=== PATIENT | male | born 1955 | race Caucasian/White ===

== ENCOUNTER → 2016-10-04 | Outpatient (CLI) | payer MEDICARE ==
[~2016-10-04] MED LIST: AMMONIUM LACTA140 GM TP; ASPIR 8181 MG PO; GLUCOPHAGE1000 MG PO; HYDROCHLOROTHIA25 MG PO; LORTAB 7.5-3251 EACH PO; NEURONTIN 300300 MG PO; OMEPRAZOLE20 MG PO; ORALONE5 GM TOP; OTEZLA30 MG PO; PAXIL 20 MG TAB20 MG GT; SOTALOL160 MG PO; XARELTO20 MG PO; ZYLOPRIM 100 M100 MG PO
[2016-10-04 11:28] LABS: BUN/CREATININE RATIO 18 (0-10)
== END ==
LOC: LAB 10:37
PROVIDERS: Family Medicine
DX: E11.9 Type 2 diabetes mellitus without complications (principal); M10.9 Gout, unspecified; E78.2 Mixed hyperlipidemia
CPT/HCPCS: 36415; 80053; 80061; 82043; 82570; 83036; 84550

== ENCOUNTER → 2020-08-09 | Outpatient (CLI) | payer MEDICARE ==
[~2020-08-09] MED LIST changes: +ALBUTEROL2.5 MG/3 M INH; +ALLOPURINOL300 MG PO; +AMIODARONE HCL200 MG PO; +AMIODARONE HCL400 MG PO; +ASPIRIN EC81 MG PO; +CARDIZEM CD180 MG PO; +DIGOX125 MCG PO; +FUROSEMIDE20 MG PO; +GABAPENTIN600 MG PO; +HYDROCODON-ACE1 EAC6 PO; +IMDUR ER TAB 3030 MG PO; +LASIX20 MG PO; +LEVAQUIN PO; +METFORMIN HCL1000 MG PO; +METOPROLOL TART25 MG PO; +NITROGLYCERIN0.4 MG SL; +NORVASC10 MG PO; +PROAIR DIGIHAL90 MCG INH; +TESSALON PERLE100 MG PO; +VENTOLIN HFA 66.7 GM INH; +XARELTO15 MG PO
[2020-08-09 13:29] LABS: HEMOGLOBIN 15.2 gm/dl (14.0-17.5); RED BLOOD COUNT 5.47 M/UL (4.20-5.50); WHITE BLOOD COUNT 9.6 K/UL (4.5-11.0)
[2020-08-09 13:50] LABS: BUN/CREATININE RATIO 10 (0-10)
[2020-08-10 10:12] LABS: CREATININE, URINE 25.1 mg/dL (Not Estab.)
== END ==
LOC: LAB 12:34
PROVIDERS: Family Medicine
DX: Z12.5 Encounter for screening for malignant neoplasm of prostate (principal); M10.9 Gout, unspecified; E11.9 Type 2 diabetes mellitus without complications; E78.2 Mixed hyperlipidemia
CPT/HCPCS: 36415; 80053; 80061; 82043; 82570; 84550; 85027; G0103

== ENCOUNTER → 2020-08-19 | Outpatient (CLI) | payer MEDICARE | LOC: KOH-I 15:33 | DX: M79.604 Pain in right leg (principal); M79.605 Pain in left leg; I73.9 Peripheral vascular disease, unspecified | CPT/HCPCS: 93922; 93925 ==

== ENCOUNTER → 2020-09-20 | Outpatient (CLI) | payer MEDICARE ==
[2020-09-20 11:11] LABS: BUN/CREATININE RATIO 18 (0-10)
== END ==
LOC: LAB 10:11
PROVIDERS: Family Medicine
DX: I10 Essential (primary) hypertension (principal)
CPT/HCPCS: 36415; 80048

== ENCOUNTER → 2020-10-15 | Outpatient (CLI) | payer MEDICARE | LOC: CT 09:26 | DX: I70.213 Atherosclerosis of native arteries of extremities with intermittent claudication, bilateral legs (principal); I70.91 Generalized atherosclerosis; I10 Essential (primary) hypertension; Z91.040 Latex allergy status | CPT/HCPCS: 75635; Q9967 ==

== ENCOUNTER → 2020-11-16 | Outpatient (CLI) | payer MEDICARE | LOC: RAD 13:12 | DX: L03.115 Cellulitis of right lower limb (principal) | CPT/HCPCS: 73610; 73630 ==

== ENCOUNTER 2020-11-22 10:28 | Emergency (ER) | payer MEDICARE ==
[~2020-11-22 10:28] MED LIST changes: -PROAIR DIGIHAL90 MCG INH; -TESSALON PERLE100 MG PO
[2020-11-22 11:57] LABS: HEMOGLOBIN 14.7 gm/dl (14.0-17.5); RED BLOOD COUNT 5.2 M/UL (4.20-5.50)
[2020-11-22 12:22] LABS: BUN/CREATININE RATIO 12 (0-10)
== END 2020-11-22 13:00 | disposition home or self-care (01) ==
LOC: ER1 10:28
PROVIDERS: Family Medicine
DX: E11.65 Type 2 diabetes mellitus with hyperglycemia (principal); F41.9 Anxiety disorder, unspecified; H53.9 Unspecified visual disturbance; E11.40 Type 2 diabetes mellitus with diabetic neuropathy, unspecified; F17.200 Nicotine dependence, unspecified, uncomplicated; Z91.040 Latex allergy status; Z88.8 Allergy status to other drugs, medicaments and biological substances; Z79.82 Long term (current) use of aspirin
CPT/HCPCS: 70450; 80053; 82550; 82553; 83874; 84484; 85025; 93005; 99284

== ENCOUNTER 2020-12-17 13:01 | Emergency (ER) | payer MEDICARE ==
[2020-12-17 14:17] LABS: HEMOGLOBIN 11.1 gm/dl (14.0-17.5); RED BLOOD COUNT 3.98 M/UL (4.20-5.50); WHITE BLOOD COUNT 13.4 K/UL (4.5-11.0)
[2020-12-17 14:54] LABS: BUN/CREATININE RATIO 28 (0-10)
[2020-12-17] MEDS ORDERED: TESSALON PERLE100 MG PO (17:24)
[2020-12-17] MEDS ORDERED: PROAIR DIGIHAL90 MCG INH (17:24)
== END 2020-12-17 17:30 | disposition home or self-care (01) ==
LOC: ER1 13:01
PROVIDERS: Physician Assistant
DX: J06.9 Acute upper respiratory infection, unspecified (principal); E78.5 Hyperlipidemia, unspecified; J44.9 Chronic obstructive pulmonary disease, unspecified; I11.9 Hypertensive heart disease without heart failure; F17.200 Nicotine dependence, unspecified, uncomplicated; Z20.822 Contact with and (suspected) exposure to COVID-19; E11.9 Type 2 diabetes mellitus without complications; I25.2 Old myocardial infarction; Z86.73 Personal history of transient ischemic attack (TIA), and cerebral infarction without residual deficits; Z95.1 Presence of aortocoronary bypass graft
CPT/HCPCS: 71045; 80053; 82550; 82553; 83874; 84484; 85025; 93005; 99285; U0002

== ENCOUNTER → 2021-05-11 | Outpatient (CLI) | payer MEDICARE ==
[~2021-05-11] MED LIST changes: +PROAIR DIGIHAL90 MCG INH; +TESSALON PERLE100 MG PO
== END ==
LOC: KOH-I 14:19
DX: F17.210 Nicotine dependence, cigarettes, uncomplicated (principal)
CPT/HCPCS: 71271

== ENCOUNTER → 2021-05-27 | Outpatient (CLI) | payer MEDICARE ==
[2021-05-27 12:41] LABS: BUN/CREATININE RATIO 15 (0-10)
== END ==
LOC: LAB 11:47
PROVIDERS: Family Medicine
DX: M10.9 Gout, unspecified (principal); E78.2 Mixed hyperlipidemia
CPT/HCPCS: 36415; 80053; 80061; 84550

== ENCOUNTER 2021-06-19 03:03 | Emergency (ER) | payer MEDICARE ==
[2021-06-19 03:56] LABS: HEMOGLOBIN 11.3 gm/dl (14.0-17.5); RED BLOOD COUNT 5.14 M/UL (4.20-5.50); WHITE BLOOD COUNT 11.8 K/UL (4.5-11.0)
[2021-06-19 08:21] LABS: HEMOGLOBIN 10.7 gm/dl (14.0-17.5); RED BLOOD COUNT 4.86 M/UL (4.20-5.50); WHITE BLOOD COUNT 10.3 K/UL (4.5-11.0)
[2021-06-19 08:42] LABS: BUN/CREATININE RATIO 13 (0-10)
[2021-06-21 20:12] LABS: APTT 32.7 sec (22.9-30.2)
== END 2021-06-19 12:26 | disposition other institution (70) ==
LOC: ER1 03:03
PROVIDERS: Emergency Medicine
DX: K92.2 Gastrointestinal hemorrhage, unspecified (principal); I10 Essential (primary) hypertension; I25.10 Atherosclerotic heart disease of native coronary artery without angina pectoris; Z20.822 Contact with and (suspected) exposure to COVID-19; F17.210 Nicotine dependence, cigarettes, uncomplicated; E78.5 Hyperlipidemia, unspecified; Z95.0 Presence of cardiac pacemaker; Z95.1 Presence of aortocoronary bypass graft
CPT/HCPCS: 36415; 80048; 80053; 82550; 82553; 83605; 83874; 84484; 85025; 85610; 85730; 85732; 86850; 86900; 86901; 87040; 96365; 96375; 99284; C9113; J2270; J2405; J2543; J7030; Q9967; U0002

== ENCOUNTER → 2021-08-04 | Outpatient (CLI) | payer MEDICARE, OTHER ==
[2021-08-04 12:18] LABS: HEMOGLOBIN 11.8 gm/dl (14.0-17.5); RED BLOOD COUNT 5.12 M/UL (4.20-5.50); WHITE BLOOD COUNT 8.4 K/UL (4.5-11.0)
== END ==
LOC: LAB 11:21
PROVIDERS: Family Medicine
DX: D64.9 Anemia, unspecified (principal)
CPT/HCPCS: 36415; 82728; 83540; 83550; 85025; 85045

== ENCOUNTER → 2021-08-11 | Day surgery (SDC) | payer MEDICARE ==
[~2021-08-11] MED LIST changes: +ALLOPURINOL100 MG PO
== END | disposition home or self-care (01) ==
LOC: OR 06:20
DX: Z12.11 Encounter for screening for malignant neoplasm of colon (principal); K63.5 Polyp of colon; K62.1 Rectal polyp; D68.9 Coagulation defect, unspecified; Z87.19 Personal history of other diseases of the digestive system; E66.3 Overweight; K57.30 Diverticulosis of large intestine without perforation or abscess without bleeding; K64.2 Third degree hemorrhoids; K64.4 Residual hemorrhoidal skin tags; I25.10 Atherosclerotic heart disease of native coronary artery without angina pectoris; I25.2 Old myocardial infarction; I10 Essential (primary) hypertension; E10.40 Type 1 diabetes mellitus with diabetic neuropathy, unspecified; K56.50 Intestinal adhesions [bands], unspecified as to partial versus complete obstruction; Z88.6 Allergy status to analgesic agent; Z88.8 Allergy status to other drugs, medicaments and biological substances; Z79.82 Long term (current) use of aspirin; Z79.84 Long term (current) use of oral hypoglycemic drugs; Z95.1 Presence of aortocoronary bypass graft; Z95.0 Presence of cardiac pacemaker; Z95.828 Presence of other vascular implants and grafts; Z68.29 Body mass index [BMI] 29.0-29.9, adult; Z79.01 Long term (current) use of anticoagulants; Z20.822 Contact with and (suspected) exposure to COVID-19
CPT/HCPCS: 82962; J2704; J7040

== ENCOUNTER → 2021-10-11 | Outpatient (CLI) | payer MEDICARE ==
[2021-10-11 12:46] LABS: HEMOGLOBIN 11.3 gm/dl (14.0-17.5); RED BLOOD COUNT 4.82 M/UL (4.20-5.50); WHITE BLOOD COUNT 8.3 K/UL (4.5-11.0)
[2021-10-11 13:16] LABS: BUN/CREATININE RATIO 12 (0-10)
[2021-10-12 10:17] LABS: CREATININE, URINE 17.2 mg/dL (Not Estab.); MICROALB/CREAT RATIO <17 (0-29)
== END ==
LOC: LAB 11:45
PROVIDERS: Family Medicine
DX: E78.2 Mixed hyperlipidemia (principal); D50.9 Iron deficiency anemia, unspecified; I10 Essential (primary) hypertension; E11.9 Type 2 diabetes mellitus without complications
CPT/HCPCS: 36415; 80053; 80061; 82043; 82570; 82728; 83036; 83540; 83550; 83735; 84550; 85027; 85045

== ENCOUNTER → 2021-11-14 | Outpatient (CLI) | payer MEDICARE | LOC: KOH-I 13:30 | DX: M51.26 Other intervertebral disc displacement, lumbar region (principal); M51.36 Other intervertebral disc degeneration, lumbar region | CPT/HCPCS: 72131 ==

== ENCOUNTER → 2022-01-02 | Outpatient (CLI) | payer MEDICARE ==
[2022-01-02 13:14] LABS: HEMOGLOBIN 14.7 gm/dl (14.0-17.5); RED BLOOD COUNT 5.6 M/UL (4.20-5.50); WHITE BLOOD COUNT 9.9 K/UL (4.5-11.0)
== END ==
LOC: LAB 12:13
PROVIDERS: Family Medicine
DX: I10 Essential (primary) hypertension (principal); E78.2 Mixed hyperlipidemia; I20.9 Angina pectoris, unspecified; I42.9 Cardiomyopathy, unspecified; I48.91 Unspecified atrial fibrillation; R00.2 Palpitations; D50.9 Iron deficiency anemia, unspecified; Z79.899 Other long term (current) drug therapy
CPT/HCPCS: 36415; 80053; 80061; 82607; 82728; 83540; 83550; 83735; 84439; 84443; 85027; 85045

== ENCOUNTER → 2022-01-13 | Outpatient (CLI) | payer MEDICARE | LOC: HEART 5 11:02 | DX: R06.02 Shortness of breath (principal); Z79.899 Other long term (current) drug therapy | CPT/HCPCS: 94060; 94729 ==